=== PATIENT | female | born 1960 | race Caucasian/White ===

== ENCOUNTER 2020-10-27 16:15 | Emergency (ER) | payer MEDICARE, OTHER ==
[~2020-10-27] VITALS: Ht 167.7 cm; Wt 94.5 kg
[2020-10-27] MEDS ORDERED: LEVO25TA5 PO (16:38)
[2020-10-27] MEDS ORDERED: LORAZEPAM (16:38)
[2020-10-27] MEDS ORDERED: TRAM50TA3 (16:38)
[2020-10-27] MEDS ORDERED: POTA10TA14 (16:38)
[2020-10-27] MEDS ORDERED: ZOLP10TA (16:38)
[2020-10-27] MEDS ORDERED: LISI20TA26 (16:38)
[2020-10-27] MEDS ORDERED: FOLI1TAB33 (16:38)
[2020-10-27] MEDS ORDERED: PANT40TA52 (16:38)
[2020-10-27] MEDS ORDERED: GABA800T10 (16:38)
--- NOTE | 2020-10-27 16:43 | ED General ---
General Chief Complaint: Cardiac/General Problems Stated Complaint: SHAKY,HIGH BP,BACK PAIN Source of Information: Patient History of Present Illness Date Seen by Provider: Oct 27, 2020 Time Seen by Provider: 16:30 Initial Comments 60-year-old female presents with concern of elevated blood pressure for the last 3 days and today had numbness in both hands and both anterior thighs that persist on arrival. Patient with past medical history significant for anxiety, hypertension and fusions of both her cervical spine and lumbar spine. Patient denies any recent illness, fever chills, cough or shortness of air. Denies abdominal pain nausea vomiting. Denies chest pain or swelling of extremities. Allergies and Home Medications Allergies Coded Allergies: erythromycin base (Unverified Adverse Reaction, Unknown, 10/27/20) Home Medications Levothyroxine Sodium 25 Mcg Tablet, 25 MCG PO DAILY, (Reported) Patient Home Medication List Home Medication List Reviewed: Yes Review of Systems Review of Systems Constitutional: No chills, No dizziness, No fever, No malaise, No weakness EENTM: no symptoms reported Respiratory: No cough, No short of breath Cardiovascular: No chest pain, No edema, No palpitations Gastrointestinal: No abdominal pain, No loss of appetite, No nausea, No vomiting Musculoskeletal: No back pain, No joint pain, No joint swelling, No muscle pain, No muscle stiffness, No muscle cramps, No muscle twitching, No muscle weakness, No neck pain Psychiatric/Neurological: See HPI, Anxiety; Denies Numbness, Denies Paresthesia; Tingling; Denies Tremors, Denies Weakness Past Pxtqcds-Zmrpzv-Yjqlpf Hx Past Med/Social Hx: Reviewed Nursing Past Med/Soc Hx Physical Exam Vital Signs Vital Signs - First Documented 10/27/20 16:15 Temp 37.7 Pulse 87 Resp 20 B/P (MAP) 169/96 (120) Pulse Ox 96 O2 Delivery Room Air Capillary Refill : Height, Weight, BMI Height: '" Weight: lbs. oz. kg; BMI Method: General Appearance: No Apparent Distress, WD/WN HEENT: PERRL/EOMI, Normal ENT Inspection Neck: Normal Inspection, Non Tender, Supple Respiratory: Chest Non Tender, Lungs Clear Cardiovascular: Regular Rate, Rhythm, No Edema, No JVD Gastrointestinal: Non Tender, Soft Back: Normal Inspection, No CVA Tenderness Extremity: Normal Capillary Refill, Normal Inspection, Normal Range of Motion, Non Tender, No Calf Tenderness Neurologic/Psychiatric: Alert, Oriented x3, No Motor/Sensory Deficits, Normal Mood/Affect, field case manager II-XII Norm as Tested Skin: Normal Color, Warm/Dry Progress/Results/Core Measures Suspected Sepsis SIRS Temperature: Pulse: Respiratory Rate: Blood Pressure / Mean: Laboratory Tests 10/27/20 16:40: Results/Orders Lab Results Laboratory Tests Test 10/27/20 16:40 Range/Units My Orders Orders - CURT CASIANO DO Comprehensive Metabolic Panel (10/27/20 16:38) Vital Signs/I&O 10/27/20 16:15 Temp 37.7 Pulse 87 Resp 20 B/P (MAP) 169/96 (120) Pulse Ox 96 O2 Delivery Room Air Capillary Refill : Departure Impression Primary Impression: Paresthesia Additional Impressions: Hypertension Qualified Codes: I10 - Essential (primary) hypertension Anxiety Disposition: 01 HOME, SELF-CARE Condition: Stable Departure-Patient Inst. Decision time for Depature: 17:00 Referrals: HANSA GARNER APRN (PCP) Primary Care Physician ALFONSO WHITE MD (Family) Primary Care Physician Patient Instructions: Anxiety, Adult ED Add. Discharge Instructions: Follow up with your PCP in 1 week regarding your blood pressure All discharge instructions reviewed with patient and/or family. Voiced understanding. CURT CASIANO DO Oct 27, 2020 16:43
[2020-10-27 17:13] LABS: ALANINE AMINOTRANSFERASE 17 U/L (0-55); ALBUMIN 4.2 GM/DL (3.2-4.5); ALKALINE PHOSPHATASE 79 U/L (40-136); BILIRUBIN,TOTAL 0.3 MG/DL (0.1-1.0); BUN/CREATININE RATIO 9; CALCIUM 9.3 MG/DL (8.5-10.1); CARBON DIOXIDE 22 MMOL/L (21-32); CHLORIDE 105 MMOL/L (98-107); CREATININE SERUM 0.77 MG/DL (0.60-1.30); GFR ESTIMATED > 60; GLUCOSE 97 MG/DL (70-105); POTASSIUM 3.6 MMOL/L (3.6-5.0); SODIUM 140 MMOL/L (135-145); TOTAL PROTEIN 7.4 GM/DL (6.4-8.2)
[2020-10-27 17:15] VITALS: BP 159/82
== END 2020-10-27 17:15 | disposition home or self-care (01) ==
LOC: EDUNIT# 16:15 → ER FS 16:16
DX: I10 Essential (primary) hypertension (principal); F41.9 Anxiety disorder, unspecified; Z79.890 Hormone replacement therapy; Z88.1 Allergy status to other antibiotic agents
CPT/HCPCS: 36415; 80053

== ENCOUNTER 2021-11-21 11:29 | Emergency (ER) | payer MEDICARE, OTHER ==
[~2021-11-21] VITALS: Ht 167 cm; Wt 94.0 kg
[~2021-11-21 11:29] MED LIST: FOLI1TAB33; GABA800T10; LEVO25TA5 PO; LISI20TA26; LORAZEPAM; PANT40TA52; POTA-164; TRAM50TA3; ZOLP10TA
[2021-11-21 11:50] LABS: BASOPHILS # (AUTO) 0.1 10^3/uL (0.0-0.1); BASOPHILS % (AUTO) 1 % (0-10); EOSINOPHILS # (AUTO) 0.2 10^3/uL (0.0-0.3); EOSINOPHILS % (AUTO) 4 % (0-10); HEMATOCRIT 41 % (35-52); HEMOGLOBIN 14.2 g/dL (11.5-16.0); LYMPHOCYTES # (AUTO) 2.3 10^3/uL (1.0-4.0); LYMPHOCYTES % (AUTO) 38 % (12-44); MEAN CORPUSCULAR HEMOGLOBIN 32 pg (25-34); MEAN CORPUSCULAR HGB CONC 35 g/dL (32-36); MEAN CORPUSCULAR VOLUME 92 fL (80-99); MEAN PLATELET VOLUME 8.3 fL (9.0-12.2); MONOCYTES # (AUTO) 0.5 10^3/uL (0.0-1.0); MONOCYTES % (AUTO) 9 % (0-12); NEUTROPHILS # (AUTO) 2.9 10^3/uL (1.8-7.8); NEUTROPHILS % (AUTO) 48 % (42-75); PLATELET COUNT 261 10^3/uL (130-400)
[2021-11-21 12:08] LABS: INR 0.9 (0.8-1.4); PROTHROMBIN TIME PATIENT 12.9 SEC (12.2-14.7)
[2021-11-21 12:17] LABS: POTASSIUM 3.9 MMOL/L (3.6-5.0)
--- NOTE | 2021-11-21 12:17 | ED General ---
General Chief Complaint: Cardiac/General Problems Stated Complaint: ELEV BP; GEN NUMBNESS/TINGLING Nursing Triage Note: ARRIVED VIA AMB WITH COMPLAINTS OF HYPERTENSION, TINGLING ALL OVER , AND A HEADACHE. HEADACHES STARTED X3 DAYS AGO ET OTHER SX STARTES APPX 2HR APPLE THINNER. Source of Information: Patient History of Present Illness Date Seen by Provider: Nov 21, 2021 Time Seen by Provider: 12:11 Initial Comments 61-year-old female presenting with complaints of having high blood pressure. She has been feeling tingling all over her body. She was having a frontal headache as well. She states that over the last 3 days she has been having increased headaches and concern for her blood pressure. She has underlying anxi ety anyway and since she had a roybbxk-ct-gst after having being evaluated in a [place] ER and being sent home. She states overnight he ended up dying and that makes her nervous whenever she starts having headaches and high blood pressure. She denies having nausea or vomiting but states she has a fullness sensation in her lower chest and abdomen. Timing/Duration: 2-3 Days Associated Systoms: No Chest Pain, No Cough, No Diaphoresis, No Fever/Chills; Headaches (Frontal); No Loss of Appetite, No Malaise, No Nausea/Vomiting, No Rash, No Seizure, No Shortness of Air, No Syncope, No Weakness Allergies and Home Medications Allergies Coded Allergies: abatacept (Verified Allergy, Unknown, 11/21/21) erythromycin base (Unverified Adverse Reaction, Unknown, 10/27/20) Patient Home Medication List Home Medication List Reviewed: Yes Folic Acid (Folic Acid) 1 Mg Tablet, 1 MG, (Reported) Entered as Reported by: GENIE PADILLA on 10/27/20 1638 Gabapentin (Gabapentin) 800 Mg Tablet, 800 MG, (Reported) Entered as Reported by: GENIE PADILLA on 10/27/20 1638 Levothyroxine Sodium (Levothyroxine Sodium) 25 Mcg Tablet, 25 MCG PO DAILY, (Reported) Entered as Reported by: GENIE PADILLA on 10/27/20 163 Lisinopril (Lisinopril) 20 Mg Tablet, 20 MG, (Reported) Entered as Reported by: GENIE PADILLA on 10/27/20 1638 Pantoprazole Sodium (Pantoprazole Sodium) 40 Mg Tablet.dr, 40 MG, (Reported) Entered as Reported by: GENIE PADILLA on 10/27/201637 Potassium Chloride (Klor-Con M10) 10 Meq Tab.er.prt, 10 MG, (Reported) Entered as Reported by: GENIE PADILLA on 10/27/20 163 Tramadol HCl (Tramadol HCl) 50 Mg Tablet, 50 MG, (Reported) Entered as Reported by: GENIE PADILLA on 10/27/201637 Zolpidem Tartrate (Ambien) 10 Mg Tablet, 10 MG, (Reported) Entered as Reported by: GENIE PADILLA on 10/27/201637 [Lorazepam] , 1 MG, (Reported) Entered as Reported by: GENIE PADILLA on 10/27/201637 Review of Systems Review of Systems Constitutional: No chills, No diaphoresis, No dizziness, No fever EENTM: No blurred vision, No vision loss, No epistaxis, No nose congestion Respiratory: No cough, No short of breath Cardiovascular: see HPI; No chest pain Gastrointestinal: see HPI; No nausea, No vomiting Genitourinary: no symptoms reported Musculoskeletal: no symptoms reported Skin: No rash Psychiatric/Neurological: See HPI, Anxiety, Headache, Tingling Past Sdzwcle-Yehjza-Olhfpk Hx Patient Social History Tobacco Use?: No Substance use?: No Alcohol Use?: No Immunizations Up To Date COVID19 Vaccine [place]: [place] Seasonal Allergies Seasonal Allergies: Yes Past Medical History Surgery/Hospitalization HX: Hypertension, anxiety Surgeries: Yes (back L4-5 fusion and cervical C4-7) Section, Gallbladder, Orthopedic Respiratory: No Cardiac: Yes Hypertension Neurological: Yes Neuropathy Genitourinary: No Gastrointestinal: Yes Gastroesophageal Reflux Musculoskeletal: Yes (psoriatic arthritis) Degenerate Disk Disease, Arthritis, Chronic Back Pain Endocrine: Yes Hypothyroidsim HEENT: No Cancer: No Psychosocial: Yes (Hx panic attacks) Anxiety Integumentary: Yes Psoriasis Blood Disorders: No Physical Exam Vital Signs Vital Signs - First Documented 11/21/21 11:29 Temp 37.0 Pulse 76 Resp 16 B/P (MAP) 179/108 (131) Pulse Ox 96 O2 Delivery Room Air Capillary Refill : Less Than 3 Seconds Height, Weight, BMI Height: '" Weight: lbs. oz. kg; 33.00 BMI Method: General Appearance: No Apparent Distress, WD/WN HEENT: PERRL/EOMI, Pharynx Normal Neck: Full Range of Motion, Normal Inspection, Non Tender, Supple Respiratory: Chest Non Tender, Lungs Clear, Normal Breath Sounds, No Accessory Muscle Use, No Respiratory Distress Cardiovascular: Regular Rate, Rhythm, Normal Peripheral Pulses Gastrointestinal: Normal Bowel Sounds, No Pulsatile Mass, Non Tender, Soft Rectal: Deferred Extremity: Normal Capillary Refill, Normal Inspection, No Pedal Edema Neurologic/Psychiatric: Alert, Oriented x3, No Motor/Sensory Deficits, research microbiologist II- XII Norm as Tested, Other (Anxious) Skin: Normal Color, Warm/Dry Progress/Results/Core Measures Suspected Sepsis SIRS Temperature: Pulse: 76 Respiratory Rate: 16 Laboratory Tests 11/21/21 11:46: White Blood Count 6.0 Blood Pressure 179 /108 Mean: 131 Laboratory Tests 11/21/21 11:46: Creatinine 0.76, INR Comment 0.9, Platelet Count 261, Total Bilirubin 0.2 Results/Orders Lab Results Laboratory Tests Test 11/21/21 11:36 11/21/21 11:46 11/21/21 13:30 Range/Units Urine Color YELLOW Urine Clarity CLEAR Urine pH 6.0 5-9 Urine Specific [place] 1.010 L 1.016-1.022 Urine Protein NEGATIVE NEGATIVE Urine Glucose (UA) NEGATIVE NEGATIVE Urine Ketones NEGATIVE NEGATIVE Urine Nitrite NEGATIVE NEGATIVE Urine Bilirubin NEGATIVE NEGATIVE Urine Urobilinogen 0.2 < = 1.0 MG/DL Urine Leukocyte Esterase NEGATIVE NEGATIVE Urine RBC (Auto) TRACE-I H NEGATIVE Urine RBC 0-2 /HPF Urine WBC 2-5 /HPF Urine Squamous Epithelial Cells 10-25 H /HPF Urine Crystals NONE /LPF Urine Bacteria MODERATE H /HPF Urine Casts NONE /LPF Urine Mucus NEGATIVE /LPF Urine Culture Indicated NO White Blood Count 6.0 4.3-11.0 10^3/uL Red Blood Count 4.50 3.80-5.11 10^6/uL Hemoglobin 14.2 11.5-16.0 g/dL Hematocrit 41 35-52 % Mean Corpuscular Volume 92 80-99 fL Mean Corpuscular Hemoglobin 32 25-34 pg Mean Corpuscular Hemoglobin Concent 35 32-36 g/dL Red Cell Distribution Width 11.9 10.0-14.5 % Platelet Count 261 130-400 10^3/uL Mean Platelet Volume 8.3 L 9.0-12.2 fL Immature Granulocyte % (Auto) 0 % Neutrophils (%) (Auto) 48 42-75 % Lymphocytes (%) (Auto) 38 12-44 % Monocytes (%) (Auto) 9 0-12 % Eosinophils (%) (Auto) 4 0-10 % Basophils (%) (Auto) 1 0-10 % Neutrophils # (Auto) 2.9 1.8-7.8 10^3/uL Lymphocytes # (Auto) 2.3 1.0-4.0 10^3/uL Monocytes # (Auto) 0.5 0.0-1.0 10^3/uL Eosinophils # (Auto) 0.2 0.0-0.3 10^3/uL Basophils # (Auto) 0.1 0.0-0.1 10^3/uL Immature Granulocyte # (Auto) 0.0 0.0-0.1 10^3/uL Prothrombin Time 12.9 12.2-14.7 SEC INR Comment 0.9 0.8-1.4 Activated Partial Thromboplast Time 29 24-35 SEC Sodium Level 141 135-145 MMOL/L Potassium Level 3.9 3.6-5.0 MMOL/L Chloride Level 103 98-107 MMOL/L Carbon Dioxide Level 27 21-32 MMOL/L Anion Gap 11 5-14 MMOL/L Blood Urea Nitrogen 10 7-18 MG/DL Creatinine 0.76 0.60-1.30 MG/DL Estimat Glomerular Filtration Rate 89 BUN/Creatinine Ratio 13 Glucose Level 91 70-105 MG/DL Calcium Level 9.4 8.5-10.1 MG/DL Corrected Calcium 9.2 8.5-10.1 MG/DL Magnesium Level 2.0 1.6-2.4 MG/DL Total Bilirubin 0.2 0.1-1.0 MG/DL Aspartate Amino Transf (AST/SGOT) 15 5-34 U/L Alanine Aminotransferase (ALT/SGPT) 16 0-55 U/L Alkaline Phosphatase 81 40-136 U/L Myoglobin 29.0 10.0-92.0 NG/ML Troponin I < 0.30 < 0.30 <0.30 NG/ML Pro-B-Type Natriuretic Peptide 109.9 H <75.0 PG/ML Total Protein 7.0 6.4-8.2 GM/DL Albumin 4.2 3.2-4.5 GM/DL Lipase 14 8-78 U/L My Orders Orders - ILA RAUSCH MD Cbc With Automated Diff (11/21/21 11:44) Magnesium (11/21/21 11:44) Ekg Tracing (11/21/21 11:44) Comprehensive Metabolic Panel (11/21/21 11:44) Myoglobin Serum (11/21/21 11:44) Protime With Inr (11/21/21 11:44) Partial Thromboplastin Time (11/21/21 11:44) O2 (11/21/21 11:44) Monitor-Rhythm Ecg Trace Only (11/21/21 11:44) Ed Iv/Invasive Line Start (11/21/21 11:44) Lipase (11/21/21 11:44) Troponin I Fs (11/21/21 11:44) Probnp Fs (11/21/21 11:44) Ct Head Wo (11/21/21 12:35) Chest 1 View Ap/Pa Only (11/21/21 12:35) Ns Iv 1000 Ml (Sodium Chloride 0.9%) (11/21/21 12:35) Ketorolac Injection (Toradol Injection) (11/21/21 12:35) Ua Culture If Indicated (11/21/21 12:35) Troponin I Fs (11/21/21 13:32) Vital Signs/I&O 11/21/21 11/21/21 11:29 14:22 Temp 37.0 Pulse 76 62 Resp 16 16 B/P (MAP) 179/108 (131) 143/71 Pulse Ox 96 98 O2 Delivery Room Air Room Air Capillary Refill : Less Than 3 Seconds Blood Pressure Mean: 131 Progress Note #1: Progress Note Obtain electrocardiogram as well as basic labs. Scan of the head since she was having a frontal headache. Chest x-ray since she was complaining of fullness or tightness in her lower chest and upper abdomen. Her blood pressure was improving on its own prior to any medication or treatment so no blood pressure medicines were administered. Will order Toradol and IV fluids to try and help with frontal headache. Progress Note #2: Progress Note Labs appear stable without acute significant abnormality. Her CT scan of the head was negative for acute process. Chest x-ray was clear without acute process. Blood pressure continued to improve without blood pressure medication. The headache was improved after Toradol and fluids. Advised that we would do a second troponin. Provided the second troponin was still negative will plan on discharge to home and consider some of this anxiety. Progress Note #3: Progress Note Repeat troponin was negative still. Reassured patient again and advised to follow-up through clinic about anxiety and blood pressure ECG Initial ECG Impression Date: Nov 21, 2021 Initial ECG Impression Time: 11:42 Initial ECG Rate: 67 Initial ECG Rhythm: Normal Sinus Initial ECG Comparisson: Unchanged Comment Sinus rhythm with a heart rate of 67 bpm. IA interval [address] elevation. QT interval 402 ms with a QTc interval 425 ms. Appears similar to prior tracing Diagnostic Imaging Diagonstic Imaging: Xray Plain Films/CT/US/NM/MRI: chest [facility] [place], [place] NAME: LASHAWN RAMOS MED REC#: [id number] PT STATUS: REG ER : 1960 PHYSICIAN: ILA RAUSCH MD ADMIT DATE: 11/21/21/ER FS Signed Date of Exam:11/21/21 CHEST 1 VIEW AP/PA ONLY EXAMINATION: Chest, one view. HISTORY: Hypertension. Chest pain. COMPARISON: None available. FINDINGS: The lung volumes are normal. No focal consolidation is seen. No large pleural effusion or pneumothorax is seen. The cardiomediastinal silhouette is normal in size and contour. No acute osseous abnormality is seen. IMPRESSION: 1. No acute pleural-parenchymal process. Dictated by: Dictated on workstation # [id number] Dict: 11/21/21 1256 Trans: 11/21/21 1258 [id number] Interpreted by: DARRELL RODRIGUEZ DO Electronically signed by: DARRELL RODRIGUEZ DO 11/21/21 1258 Reviewed: Reviewed by Nv Diagonstic Imaging: CT Plain Films/CT/US/NM/MRI: head Comments [facility] [place] [place] NAME: JAK RAMOSLulu Harrell MED REC#: [id number] PT STATUS: REG ER : 1960 PHYSICIAN: ILA RAUSCH MD ADMIT DATE: 11/21/21/ER FS Signed Date of Exam:11/21/21 CT HEAD WO EXAMINATION: CT head without contrast. TECHNIQUE: Multiple contiguous axial images were obtained through the brain without the use of intravenous contrast. All CT scans use one or more of the following dose optimizing techniques: automated exposure control, MA and/or KvP adjustment based on patient size and exam type or iterative reconstruction. HISTORY: Frontal headaches. Tingling all over the body. COMPARISON: None available. FINDINGS: No large acute territorial ischemia, mass, or hemorrhage. No midline shift or mass effect. The ventricles, cortical sulci, and basilar cisterns are patent and unremarkable. The orbits are normal. Paranasal sinuses are normal. Mastoid air cells are clear. No soft tissue abnormality is seen. No osseous lesions or fractures are seen. IMPRESSION: 1. No large acute territorial ischemia, mass, or hemorrhage. Dictated by: Dictated on workstation # [id number] Dict: 11/21/21 1254 Trans: 11/21/21 1258 [id number] Interpreted by: DARRELL RODRIGUEZ DO Electronically signed by: DARRELL RODRIGUEZ DO 11/21/21 1258 Reviewed: Reviewed by Me Departure Impression Primary Impression: Elevated blood pressure reading with diagnosis of hypertension Additional Impressions: Frontal headache Anxiety Disposition: 01 HOME, SELF-CARE Condition: Stable Departure-Patient Inst. Decision time for Depature: 14:05 Referrals: HANSA GARNER APRN (PCP) Primary Care Physician [facility] (Family) Primary Care Physician Patient Instructions: High Blood Pressure ED, Anxiety, Adult ED, Headache, Adult ED, DASH Diet, Controlling Your Blood Pressure Through Lifestyle Add. Discharge Instructions: Stay well-hydrated and drink plenty of fluids. Continue on your regular medications. Follow-up with clinic about elevated blood pressure and symptoms in case they want to adjust any of your medications. All discharge instructions reviewed with patient and/or family. Voiced understanding. ILA RAUSCH MD Nov 21, 2021 12:17
[2021-11-21 12:18] LABS: ALBUMIN 4.2 GM/DL (3.2-4.5); BILIRUBIN,TOTAL 0.2 MG/DL (0.1-1.0); CALCIUM 9.4 MG/DL (8.5-10.1); CREATININE SERUM 0.76 MG/DL (0.60-1.30)
[2021-11-21] MEDS ORDERED: KETOROLAC 30 MG/ML VIAL IVP STA (12:35)
[2021-11-21] MEDS ORDERED: NS IV 1000 ML 1,000 ML IV STA (12:35)
[2021-11-21 12:45] LABS: BILIRUBIN,URINE NEGATIVE (NEGATIVE); CLARITY,URINE CLEAR; COLOR,URINE YELLOW; GLUCOSE, URINE (UA) NEGATIVE (NEGATIVE); KETONES,URINE NEGATIVE (NEGATIVE); LEUKOCYTE ESTERASE ,URINE NEGATIVE (NEGATIVE); NITRITE,URINE NEGATIVE (NEGATIVE); PROTEIN,URINE NEGATIVE (NEGATIVE)
--- NOTE | 2021-11-21 12:57 | Diagnostic Imaging Report ---
EXAMINATION: CT head without contrast. TECHNIQUE: Multiple contiguous axial images were obtained through the brain without the use of intravenous contrast. All CT scans use one or more of the following dose optimizing techniques: automated exposure control, MA and/or KvP adjustment based on patient size and exam type or iterative reconstruction. HISTORY: Frontal headaches. Tingling all over the body. COMPARISON: None available. FINDINGS: No large acute territorial ischemia, mass, or hemorrhage. No midline shift or mass effect. The ventricles, cortical sulci, and basilar cisterns are patent and unremarkable. The orbits are normal. Paranasal sinuses are normal. Mastoid air cells are clear. No soft tissue abnormality is seen. No osseous lesions or fractures are seen. IMPRESSION: 1. No large acute territorial ischemia, mass, or hemorrhage. Dictated by: Dictated on workstation # [id number]
--- NOTE | 2021-11-21 12:57 | Diagnostic Imaging Report ---
EXAMINATION: Chest, one view. HISTORY: Hypertension. Chest pain. COMPARISON: None available. FINDINGS: The lung volumes are normal. No focal consolidation is seen. No large pleural effusion or pneumothorax is seen. The cardiomediastinal silhouette is normal in size and contour. No acute osseous abnormality is seen. IMPRESSION: 1. No acute pleural-parenchymal process. Dictated by: Dictated on workstation # [id number]
[2021-11-21 13:34] LABS: RBC,URINE 0-2 /HPF
[2021-11-21 13:35] LABS: BACTERIA,URINE MODERATE /HPF
[2021-11-21 14:22] VITALS: BP 143/71
== END 2021-11-21 14:22 | disposition home or self-care (01) ==
LOC: EDUNIT# 11:29 → ER FS 11:30
DX: I10 Essential (primary) hypertension (principal); R51.9 Headache, unspecified; F41.9 Anxiety disorder, unspecified
CPT/HCPCS: 36415; 70450; 71045; 80053; 81000; 83690; 83735; 83874; 83880; 84484; 85025; 85610; 85730; 93005; 93041

== ENCOUNTER 2022-07-24 16:12 | Emergency (ER) | payer MEDICARE, OTHER ==
[~2022-07-24] VITALS: Ht 167.7 cm; Wt 93.4 kg
[2022-07-24 16:26] VITALS: BP 132/74
[2022-07-24] MEDS ORDERED: ONDANSETRON 4 MG (ZOFRAN) ORAL DISSOLVE TAB PO STA (16:32)
[2022-07-24] MEDS ORDERED: ONDA4TAB11 SL (16:39)
[2022-07-24] MEDS ORDERED: PROM12.566 RC (16:39)
--- NOTE | 2022-07-24 16:39 | ED GI ---
General Chief Complaint: Abdominal/GI Problems Stated Complaint: VOMTTING Source of Information: Patient Exam Limitations: No Limitations History of Present Illness Date Seen by Provider: Jul 24, 2022 Time Seen by Provider: 16:14 Initial Comments 62-year-old female coming in due to fever as well as nausea and nonbloody nonbilious vomiting since Saturday. Has had some nonbloody diarrhea as well. Went to urgent care yesterday and reportedly had a negative flu and COVID test. Was diagnosed with a UTI and started on nitrofurantoin. She states the vomiting has been persistent and she has been unable to really keep it down. Last had a fever she believes on Saturday. Has not taken anything for fever today. Otherwise denying any other acute complaints including any chest pain, shortness of breath, abdominal pain, focal weakness or numbness, headache, neck stiffness, or any other concerns. Allergies and Home Medications Allergies Coded Allergies: abatacept (Verified Allergy, Unknown, 11/21/21) erythromycin base (Unverified Adverse Reaction, Unknown, 10/27/20) Patient Home Medication List Home Medication List Reviewed: Yes Folic Acid (Folic Acid) 1 Mg Tablet, 1 MG, (Reported) Entered as Reported by: GENIE PADILLA on 10/27/20 1638 Gabapentin (Gabapentin) 800 Mg Tablet, 800 MG, (Reported) Entered as Reported by: GENIE PADILLA on 10/27/20 1638 Levothyroxine Sodium (Levothyroxine Sodium) 25 Mcg Tablet, 25 MCG PO DAILY, (Reported) Entered as Reported by: GENIE PADILLA on 10/27/20 1638 Lisinopril (Lisinopril) 20 Mg Tablet, 20 MG, (Reported) Entered as Reported by: GENIE PADILLA on 10/27/20 1638 Ondansetron (Ondansetron Odt) 4 Mg Tab.rapdis, 4 MG SL Q6H PRN for NAUSEA/VOMITING Prescribed by: TATIANA DANG on 07/24/22 1639 Pantoprazole Sodium (Pantoprazole Sodium) 40 Mg Tablet.dr, 40 MG, (Reported) Entered as Reported by: GENIE PADILLA on 10/27/20 1638 Potassium Chloride (Klor-Con M10) 10 Meq Tab.er.prt, 10 MG, (Reported) Entered as Reported by: GENIE PADILLA on 10/27/20 1638 Promethazine HCl (Promethazine Suppository) 12.5 Mg Supp.rect, 12.5 MG RC Q6H PRN for NAUSEA/VOMITING-2ND LINE Prescribed by: TATIANA DANG on 07/24/22 1639 Tramadol HCl (Tramadol HCl) 50 Mg Tablet, 50 MG, (Reported) Entered as Reported by: GENIE PADILLA on 10/27/20 1638 Zolpidem Tartrate (Ambien) 10 Mg Tablet, 10 MG, (Reported) Entered as Reported by: GENIE PADILLA on 10/27/20 1638 [Lorazepam] , 1 MG, (Reported) Entered as Reported by: GENIE PADILLA on 10/27/20 1638 Review of Systems Review of Systems Constitutional: fever EENTM: No Blurred Vision Respiratory: Denies Cough Cardiovascular: Denies Chest Pain Gastrointestinal: Diarrhea, Nausea, Vomiting Genitourinary: Frequency Musculoskeletal: no symptoms reported Skin: no symptoms reported Psychiatric/Neurological: No Symptoms Reported Endocrine: No Symptoms Reported Hematologic/Lymphatic: No Symptoms Reported All Other Systems Reviewed Negative Unless Noted: Yes Past Vpppema-Ozdtzn-Lmbsjs Hx Patient Social History Tobacco Use?: No Seasonal Allergies Seasonal Allergies: Yes Past Medical History Surgery/Hospitalization HX: Hypertension, anxiety Surgeries: Yes (back L4-5 fusion and cervical C4-7) Section, Gallbladder, Orthopedic Respiratory: No Cardiac: Yes Hypertension Neurological: Yes Neuropathy Genitourinary: No Gastrointestinal: Yes Gastroesophageal Reflux Musculoskeletal: Yes (psoriatic arthritis) Degenerate Disk Disease, Arthritis, Chronic Back Pain Endocrine: Yes Hypothyroidsim HEENT: No Cancer: No Psychosocial: Yes (Hx panic attacks) Anxiety Integumentary: Yes Psoriasis Blood Disorders: No Physical Exam Vital Signs Capillary Refill : Height/Weight/BMI Height: '" Weight: lbs. oz. kg; 33.00 BMI Method: General Appearance: WD/WN, no apparent distress HEENT: PERRL/EOMI, normal ENT inspection, pharynx normal Neck: non-tender, full range of motion, supple, normal inspection Respiratory: chest non-tender, lungs clear, normal breath sounds, no respiratory distress, no accessory muscle use Cardiovascular: regular rate, rhythm, no edema, no murmur Gastrointestinal: normal bowel sounds, non tender, soft; No distended, No guarding, No rebound Extremities: normal range of motion, non-tender, normal inspection, no pedal edema, no calf tenderness, normal capillary refill Back: normal inspection, no CVA tenderness Neurologic/Psychiatric: no motor/sensory deficits, alert, normal mood/affect Skin: normal color, warm/dry Lymphatic: no adenopathy Progress/Results/Core Measures Results/Orders My Orders Orders - TATIANA DANG MD Ceftriaxone (Rocephin) (07/24/22 16:45) Lidocaine 1% Inj 20 Ml (Xylocaine 1% Inj (07/24/22 16:45) Ondansetron Oral Dissolve Tab (Zofran (07/24/22 16:32) Medications Given in ED Current Medications Medications Dose Ordered Sig/Coty Route Start Time Stop Time Status Last Admin Dose Admin Ceftriaxone Sodium 1,000 mg ONCE ONCE IM 07/24/22 16:45 07/24/22 16:46 DC 07/24/22 16:44 1,000 MG Lidocaine HCl 2.1 ml ONCE ONCE INJ 07/24/22 16:45 07/24/22 16:46 DC 07/24/22 16:44 2.1 ML Progress Progress Note : Progress Note 62-year-old female presenting for fever, nausea, vomiting, and diarrhea. ABCs were intact and vitals were stable on presentation. Physical exam reassuring including a soft and nontender abdomen. Patient given oral Zofran and oral rehydration without difficulty. Gave 1 IM shot of ceftriaxone for the UTI given she has been unable to keep down her antibiotic. Otherwise well-appearing. Clinically she does appear to have influenza given how high the prevalence has been in the area. We will forego repeat testing at this time. Otherwise she is well-appearing and I believe stable for discharge with outpatient follow-up. Departure Impression Primary Impression: Vomiting in adult Additional Impressions: Cystitis Influenza Disposition: 01 HOME, SELF-CARE Condition: Stable Departure-Patient Inst. Decision time for Depature: 17:11 Referrals: HANSA GARNER APRN (PCP) Primary Care Physician [facility] (Family) Primary Care Physician Patient Instructions: Flu, Adult ED Add. Discharge Instructions: Your symptoms are consistent with influenza which we have been seeing almost record numbers in the area. Most people have had fever for 3 to 4 days. You can have nausea and vomiting during that time as well. Some people have developed cough that can last quite a while. Continue to try to take your antibiotic for your UTI starting tomorrow. If you are unable to keep it down, it likely will be okay given the antibiotic you received today. You can try Zofran for nausea which is oral. If you have vomiting on top of this, you can try the Phenergan suppository. Scripts Promethazine HCl (Promethazine Suppository) 12.5 Mg Supp.rect 12.5 MG RC Q6H PRN for NAUSEA/VOMITING-2ND LINE for 3 Days, #12 SUPP.RECT Prov: TATIANA DANG MD 07/24/22 Ondansetron (Ondansetron Odt) 4 Mg Tab.rapdis 4 MG SL Q6H PRN for NAUSEA/VOMITING for 5 Days, #20 TAB Prov: TATIANA DANG MD 07/24/22 TATIANA DANG MD Jul 24, 2022 16:39
[2022-07-24] MEDS ORDERED: LIDOCAINE 1% INJ 20 ML VIAL INJ ONE (16:45)
[2022-07-24] MEDS ORDERED: cefTRIAXone 1,000 MG VIAL IM ONE (16:45)
== END 2022-07-24 17:21 | disposition home or self-care (01) ==
LOC: EDUNIT# 16:12 → ER FS 16:13
DX: R12 Heartburn (principal); N30.90 Cystitis, unspecified without hematuria; R19.7 Diarrhea, unspecified; J11.1 Influenza due to unidentified influenza virus with other respiratory manifestations
CPT/HCPCS: 99284

== ENCOUNTER → 2022-08-02 | Outpatient (CLI) | payer MEDICARE, OTHER ==
[~2022-08-02] MED LIST changes: +ONDA4TAB11 SL; +PROM12.566 RC
--- NOTE | 2022-08-02 12:59 | Diagnostic Imaging Report ---
EXAMINATION: Chest 2 view HISTORY: PERSISTENT COUGH COMPARISON: 11/21/2021 FINDINGS: Heart size and pulmonary vasculature are normal. The lungs are clear without consolidation, pleural effusion, or pneumothorax. The osseous structures are intact. IMPRESSION: 1. No acute radiographic abnormality in the chest. Dictated by: Dictated on workstation # [id number]
== END ==
LOC: RAD FS 11:53
PROVIDERS: ATTEND Nurse Practitioner Family
DX: R05.3 Chronic cough (principal)
CPT/HCPCS: 71046

== ENCOUNTER 2022-11-13 23:14 | Emergency (ER) | payer MEDICARE, OTHER ==
[2022-11-13] MEDS ORDERED: LORazepam 0.5 MG (ATIVAN) TABLET PO STA (23:23)
[2022-11-13] MEDS ORDERED: ZOLP10TA PO (23:28)
--- NOTE | 2022-11-13 23:30 | ED General ---
General Chief Complaint: General Problems/Pain Stated Complaint: SHAKY,PAIN ON ONE SIDE OF BODY Source of Information: Patient, Family () Exam Limitations: No Limitations History of Present Illness Date Seen by Provider: Nov 13, 2022 Time Seen by Provider: 23:15 Initial Comments 62-year-old female presents to the emergency department today for what she believes to be anxiety. She states she ran out of her lorazepam, zolpidem today as they were slow giving it called into the pharmacy. She states she is having difficulty sleeping, shakiness and tingling. She has had some pain on the right side of her body in her bra line right upper chest intermittently but she states it is her breathing fast. She does have this happen to her sometimes with anxiety. She denies any anterior cardiac type chest pain. No shortness of breath. No changes in bowel or bladder habits. No vaginal symptoms. No fevers or chills. All other systems reviewed and negative except documented per HPI. Voice recognition software was used to help create this chart Allergies and Home Medications Allergies Coded Allergies: abatacept (Verified Allergy, Unknown, 11/21/21) erythromycin base (Unverified Adverse Reaction, Unknown, 10/27/20) Patient Home Medication List Home Medication List Reviewed: Yes Folic Acid (Folic Acid) 1 Mg Tablet, 1 MG, (Reported) Entered as Reported by: GENIE PADILLA on 10/27/20 1638 Gabapentin (Gabapentin) 800 Mg Tablet, 800 MG, (Reported) Entered as Reported by: GENIE PADILLA on 10/27/20 163 Levothyroxine Sodium (Levothyroxine Sodium) 25 Mcg Tablet, 25 MCG PO DAILY, (Reported) Entered as Reported by: GENIE PADILLA on 10/27/20 1638 Lisinopril (Lisinopril) 20 Mg Tablet, 20 MG, (Reported) Entered as Reported by: GENIE PADILLA on 10/27/20 1638 Ondansetron (Ondansetron Odt) 4 Mg Tab.rapdis, 4 MG SL Q6H PRN for NAUSEA/VOMITING Prescribed by: TATIANA DANG on 07/24/22 1639 Pantoprazole Sodium (Pantoprazole Sodium) 40 Mg Tablet.dr, 40 MG, (Reported) Entered as Reported by: GENIE PADILLA on 10/27/20 1638 Potassium Chloride (Klor-Con M10) 10 Meq Tab.er.prt, 10 MG, (Reported) Entered as Reported by: GENIE PADILLA on 10/27/20 1638 Promethazine HCl (Promethazine Suppository) 12.5 Mg Supp.rect, 12.5 MG RC Q6H PRN for NAUSEA/VOMITING-2ND LINE Prescribed by: TATIANA DANG on 07/24/22 1639 Tramadol HCl (Tramadol HCl) 50 Mg Tablet, 50 MG, (Reported) Entered as Reported by: GENIE PADILLA on 10/27/20 1638 Zolpidem Tartrate (Ambien) 10 Mg Tablet, 10 MG, (Reported) Entered as Reported by: GENIE PADILLA on 10/27/20 1638 Zolpidem Tartrate (Ambien) 10 Mg Tablet, 10 MG PO HS Prescribed by: ROHAN ENRIQUE MD on 11/13/22 2329 [Lorazepam] , 1 MG, (Reported) Entered as Reported by: GENIE PADILLA on 10/27/20 1638 Review of Systems Review of Systems Constitutional: see HPI Past Jkfbwlo-Tghlxn-Aaffjq Hx Patient Social History Tobacco Use?: No Use of E-Cig and/or Vaping dev: No Substance use?: No Alcohol Use?: No Immunizations Up To Date First/Initial COVID19 Vaccinat: UNKNOWN DATE Second COVID19 Vaccination Sd: UNKNOWN DATE Third COVID19 Vaccination Date: UNKNOWN DATE Seasonal Allergies Seasonal Allergies: Yes Past Medical History Surgery/Hospitalization HX: Hypertension, anxiety, RA Surgeries: Yes (back L4-5 fusion and cervical C4-7) Section, Gallbladder, Orthopedic Respiratory: No Cardiac: Yes Hypertension Neurological: Yes Neuropathy Genitourinary: No Gastrointestinal: Yes Gastroesophageal Reflux Musculoskeletal: Yes (psoriatic arthritis) Degenerate Disk Disease, Arthritis, Chronic Back Pain Endocrine: Yes Hypothyroidsim HEENT: No Cancer: No Psychosocial: Yes (Hx panic attacks) Anxiety Integumentary: Yes Psoriasis Blood Disorders: No Family Medical History Reviewed Nursing Family Hx No Pertinent Family Hx Physical Exam Vital Signs Vital Signs - First Documented 11/13/22 23:17 Pulse 99 Resp 18 B/P (MAP) 184/102 (129) Pulse Ox 100 O2 Delivery Room Air Capillary Refill : Height, Weight, BMI Height: '" Weight: lbs. oz. kg; 33.00 BMI Method: General Appearance: No Apparent Distress, WD/WN HEENT: Normal ENT Inspection, Pharynx Normal Neck: Full Range of Motion, Normal Inspection, Non Tender, Supple Respiratory: Chest Non Tender, Lungs Clear, Normal Breath Sounds, No Accessory Muscle Use, No Respiratory Distress, Other (Unable to reproduce tenderness on exam. She states it has subsided) Cardiovascular: Regular Rate, Rhythm, No Murmur, Normal Peripheral Pulses Gastrointestinal: Normal Bowel Sounds, No Organomegaly, No Pulsatile Mass, Non Tender, Soft Extremity: Normal Capillary Refill, Normal Inspection, Normal Range of Motion, Non Tender, No Calf Tenderness Neurologic/Psychiatric: Alert, Oriented x3, No Motor/Sensory Deficits, Normal Mood/Affect, wick tender II-XII Norm as Tested Skin: Normal Color, Warm/Dry Progress/Results/Core Measures Suspected Sepsis SIRS Temperature: Pulse: Respiratory Rate: Blood Pressure / Mean: Results/Orders My Orders Orders - ROHAN ENRIQUE DO Chest 1 View Ap/Pa Only (11/13/22 23:23) Lorazepam Tablet (Ativan Tablet) (11/13/22 23:23) Vital Signs/I&O 11/13/22 23:17 Pulse 99 Resp 18 B/P (MAP) 184/102 (129) Pulse Ox 100 O2 Delivery Room Air Capillary Refill : Departure Communication (Admissions) Patient is hemodynamically stable. She requests medication refill. We will have him been here however give her p.o. lorazepam. Advised her I was unable to refill this medicine for home use. I did refill her Ambien for her to pickle maker at her pharmacy told her she would need to talk to her primary doctor about lorazepam refill. She states understanding. She is discharged home in stable condition. Independently reviewed her chest x-ray. No acute findings. Impression Primary Impression: Chest wall pain Additional Impression: Anxiety Disposition: 01 HOME, SELF-CARE Condition: Stable Departure-Patient Inst. Referrals: HANSA GARNER APRN (PCP) Primary Care Physician [facility] (Family) Primary Care Physician Add. Discharge Instructions: I have given you a single dose of lorazepam here. You will need to call your doctor in the morning to get any refills of this. I cannot refill this medication from the emergency department. I have ordered a prescription for your zolpidem to be refilled just for a few days until he can get it from your doctor. X-ray of your chest is negative for any serious findings, pneumonia or collapsed lung. Return to the emergency department for any severe concerns. All discharge instructions reviewed with patient and/or family. Voiced understanding. Scripts Zolpidem Tartrate (Ambien) 10 Mg Tablet 10 MG PO HS for Sleep for 3 Days, #3 TAB Prov: ROHAN ENRIQUE DO 11/13/22 ROHAN ENRIQUE DO Nov 13, 2022 23:30
[2022-11-13 23:32] VITALS: BP 169/84
--- NOTE | 2022-11-14 05:45 | Diagnostic Imaging Report ---
CLINICAL INDICATIONS: Patient with right-sided pain. EXAM: Portable chest x-ray upright view. COMPARISON: Chest x-ray dated 11/21/2021. FINDINGS: Lungs/pleura: Lungs are clear. There is no pneumothorax. There is no pleural effusion. Mediastinum: Unremarkable. Pulmonary vasculature: Unremarkable. Heart: Unremarkable. Bones/extrathoracic soft tissue: There are mildly hypertrophic spurs involving the thoracic spine. IMPRESSION: There is no radiographic evidence of acute cardiopulmonary process. Dictated by: Dictated on workstation # [id number]
== END 2022-11-13 23:33 | disposition home or self-care (01) ==
LOC: EDUNIT# 23:14 → ER FS 23:16
DX: F41.0 Panic disorder [episodic paroxysmal anxiety] (principal)
CPT/HCPCS: 71045